=== PATIENT | female | born 1995 | race Caucasian/White ===

== ENCOUNTER 2021-03-09 06:17 | Emergency (ER) | payer MEDICAID ==
[~2021-03-09] VITALS: Ht 154.9 cm; Wt 85.7 kg
[2021-03-09 06:49] VITALS: BP_SYST 137
--- NOTE | 2021-03-09 07:41 | NUR ---
ER in triage examining patient.
[2021-03-09] MEDS ORDERED: MAG HYDROX/AL HYDROX/SIMETH 30 ML, DICYCLOMINE HCL 20 MG, LIDOCAINE VISCOUS 2% 15ML (PO... PO ONE ×3 (08:00)
--- NOTE | 2021-03-09 08:05 | NUR ---
PT ELOPED PRIOR TO MEDICATING.
[2021-03-09] MEDS ORDERED: AMOX-423 PO (20:38)
[2021-03-09] MEDS ORDERED: IBUP-1969 PO (20:38)
[2021-03-09] MEDS ORDERED: ONDA-8 TL (20:38)
== END 2021-03-09 08:05 | disposition left against medical advice (07) ==
LOC: SED 06:17
DX: R10.13 Epigastric pain (principal); R11.2 Nausea with vomiting, unspecified; Z79.899 Other long term (current) drug therapy
CPT/HCPCS: 99281

== ENCOUNTER 2021-03-09 17:54 | Emergency (ER) | payer MEDICAID ==
[~2021-03-09] VITALS: Ht 157.5 cm; Wt 99.8 kg
--- NOTE | 2021-03-09 18:20 | NUR ---
Patient to ER bed 7 to gown for evaluation. Side rails. Assumed care.
--- NOTE | 2021-03-09 18:20 | NUR ---
DR RODRIGUEZ IN TO ASSESS
--- NOTE | 2021-03-09 18:48 | NUR ---
OFF TO CT . STEADY GAIT
[2021-03-09 19:04] LABS: BILIRUBIN,URINE NEGATIVE (NEGATIVE); BLOOD, URINE NEGATIVE (NEGATIVE); COLOR,URINE YELLOW (YELLOW); GLUCOSE,URINE NEGATIVE (NEGATIVE); KETONES,URINE NEGATIVE (NEGATIVE); NITRITE, URINE POSITIVE (NEGATIVE); PROTEIN URINE NEGATIVE (NEGATIVE); UROBILINOGEN,URINE 0.2 (0.2-1.0)
--- NOTE | 2021-03-09 19:10 | NUR ---
Pt. bib mom with c/o lower abd. pain and upper left quadrant pain rates it 3/10, had some nausea but denies throwing up, pain started today at 0500 and pt. states actually better now than earlier.
[2021-03-09 19:17] LABS: LEUKOCYTE ESTERASE ,URINE TRACE (NEGATIVE)
[2021-03-09 19:18] LABS: CLARITY/URINE HAZY (CLEAR)
[2021-03-09 19:19] LABS: BACTERIA,URINE MANY /HPF (None Seen); MUCUS,URINE None Seen /LPF (None Seen); RBC,URINE NONE SEEN /HPF (0-3)
[2021-03-09] MEDS ORDERED: cefTRIAXone 1 GM in LIDOCAINE 1%, 20 ML MDV 2.1 ML IM ONE (19:45)
[2021-03-09 20:13] LABS: CALCIUM 8.8 mg/dL (8.4-11.0); CREATININE 0.96 mg/dL (0.55-1.30); POTASSIUM 3.9 mmol/L (3.5-5.1)
[2021-03-09 20:14] LABS: BASOPHILS % (AUTO) 0.4 % (0.0-2.0); EOSINOPHILS % (AUTO) 0.2 % (0.0-4.0); HEMATOCRIT 27.4 % (36-48); HEMOGLOBIN 8.1 g/dL (12.0-16.0); LYMPHOCYTES # (AUTO) 1.7 K/uL (1.0-5.5); LYMPHOCYTES % (AUTO) 13.4 % (20.5-51.5); MEAN CORPUSCULAR HEMOGLOBIN 19 pg (27-31); MEAN CORPUSCULAR HGB CONC 30 % (32-36); MEAN CORPUSCULAR VOLUME 65 fL (79.0-98.0); MONOCYTES # (AUTO) 0.6 K/uL (0.0-1.0); MONOCYTES % (AUTO) 4.6 % (1.7-9.3); NEUTROPHILS # (AUTO) 10.4 K/uL (1.8-7.7); NEUTROPHILS % (AUTO) 81.4 % (40.0-70.0); PLATELET COUNT (AUTO) 287 K/uL (130-430); RED BLOOD CELL COUNT(AUTO) 4.24 MIL/uL (4.2-6.2); RED CELL DISTRIBUTION WIDTH 19.3 % (9.0-15.0); WHITE BLOOD COUNT (AUTO) 12.8 K/uL (4.8-10.8)
[2021-03-09 20:25] LABS: ALBUMIN 3.4 g/dL (3.4-4.8); TOTAL BILIRUBIN 0.3 mg/dL (0.0-1.0)
[2021-03-09 20:26] LABS: PROTHROMBIN TIME 10.1 SECS (9.5-12.5)
[2021-03-09] MEDS ORDERED: AMOX-423 PO (20:38)
[2021-03-09] MEDS ORDERED: IBUP-1969 PO (20:38)
[2021-03-09] MEDS ORDERED: ONDA-8 TL (20:38)
[2021-03-09 20:45] VITALS: BP_SYST 133
[2021-03-09] MEDS ORDERED: AMOXICILLIN/CLAVULANATE POTASSIUM 500 MG TABLET PO ONE (20:45)
[2021-03-09] MEDS ORDERED: IBUPROFEN 800 MG TABLET PO ONE (20:45)
--- NOTE | 2021-03-09 20:45 | NUR ---
Patient given written and verbal discharge instructions and verbalizes understanding. ER MD discussed with patient the results and treatment provided. Patient in stable condition. ID arm band removed. Rx of Augmentin, Ibuprofen and Zofran given. Patient educated on pain management and to follow up with PMD. Pain Scale 2/10. Opportunity for questions provided and answered. Medication side effect fact sheet provided.
== END 2021-03-09 20:45 | disposition home or self-care (01) ==
LOC: SED 17:54
DX: K57.92 Diverticulitis of intestine, part unspecified, without perforation or abscess without bleeding (principal); N39.0 Urinary tract infection, site not specified; Z79.899 Other long term (current) drug therapy
CPT/HCPCS: 36415; 74176; 76376; 80053; 81000; 81025; 82150; 83605; 83690; 84703; 85025; 85610; 85730; 86140; 87086; 96372; 99284; J0696; J2001